=== PATIENT | male | born 1960 | race Caucasian/White ===

== ENCOUNTER 2017-07-22 10:29 | Emergency (ER) | payer OTHER ==
--- NOTE | 2017-07-22 10:42 | CPEKG ---
Heart Rate: 60 RR Interval: 1000 P-R Interval: 152 QRSD Interval: 82 QT Interval: 420 QTC Interval: 420 P Henning: 8 QRS Henning: 47 T Wave Henning: 33 EKG Severity - ABNORMAL ECG - EKG Impression: SINUS RHYTHM EKG Impression: MULTIPLE VENTRICULAR PREMATURE COMPLEXES EKG Impression: BORDERLINE INFERIOR Q WAVES Electronically Signed By: Hang Castano 27-Jul-2017 20:38:09
[2017-07-22 11:03] VITALS: BP 137/66
[2017-07-22 11:36] LABS: PLATELET COUNT 264 10^3/uL (150-400)
[2017-07-22] MEDS ORDERED: NS 1,000 ML IV ONE (11:38)
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
== END 2017-07-22 13:06 | disposition home or self-care (01) ==
LOC: EDBD 10:29
DX: R53.83 Other fatigue (principal); R00.2 Palpitations; E86.9 Volume depletion, unspecified; I25.10 Atherosclerotic heart disease of native coronary artery without angina pectoris; I25.2 Old myocardial infarction; Z79.82 Long term (current) use of aspirin; Z95.5 Presence of coronary angioplasty implant and graft
CPT/HCPCS: 84484-PO